=== PATIENT | male | born 1975 | race African-American/Black ===

== ENCOUNTER 2018-12-03 11:35 | Emergency (ER) | payer OTHER ==
[2018-12-03 11:47] VITALS: BP 119/76; PULSE 82; TEMP 98.2; BMI 33.5
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
== END 2018-12-03 12:56 | disposition home or self-care (01) ==
LOC: JERFT 11:35
DX: S16.1XXA Strain of muscle, fascia and tendon at neck level, initial encounter (principal); V43.62XA Car passenger injured in collision with other type car in traffic accident, initial encounter; Y92.414 Local residential or business street as the place of occurrence of the external cause; Y93.89 Activity, other specified; Y99.8 Other external cause status
CPT/HCPCS: 99281-25

== ENCOUNTER 2021-02-23 15:15 | Emergency (ER) | payer BC, OTHER ==
[2021-02-23 15:23] VITALS: BMI 29.5
[2021-02-23] MEDS ORDERED: SODIUM CHLORIDE 1,000 ML IV STA (16:15)
[2021-02-23] MEDS ORDERED: ACETAMINOPHEN 1000 MG/100 ML BAG IVPB ONE (16:15)
[2021-02-23] MEDS ORDERED: ONDANSETRON 4 MG/2 ML VIAL IVPUSH ONE (16:15)
[2021-02-23] MEDS ORDERED: morphine CARPU-JECT 4 MG/1 ML DISP.SYRIN IVPUSH ONE (16:16)
[2021-02-23] MEDS ORDERED: morphine SULFATE 4 MG/ML VIAL ONE (17:38)
[2021-02-23] MEDS ORDERED: ACETAMINOPHEN INJECTION 100 ML IVPB ONE (17:38)
[2021-02-23] MEDS ORDERED: ONDANSETRON 4 MG/2 ML VIAL ONE (17:39)
[2021-02-23 18:33] LABS: URINE APPEARANCE CLEAR; URINE BILIRUBIN NEGATIVE (NEGATIVE); URINE COLOR YELLOW; URINE GLUCOSE (UA) NEGATIVE (NEGATIVE); URINE KETONE NEGATIVE (NEGATIVE); URINE LEUK ESTERASE NEGATIVE (NEGATIVE); URINE NITRITE NEGATIVE (NEGATIVE); URINE PROTEIN NEGATIVE (NEGATIVE); URINE UROBILINOGEN 0.2 mg/dL (0.2-1.0)
[2021-02-23 18:46] LABS: CALCIUM 9.4 mg/dL (8.5-10.1)
[2021-02-23 18:47] LABS: ALBUMIN 4.2 g/dl (3.4-5.0); BLOOD UREA NITROGEN 16.9 mg/dL (7-18); INR 1.03 (0.83-1.09); PROTHROMBIN TIME (PATIENT) 11.8 SEC (9.7-13.0)
[2021-02-23 18:50] LABS: CREATININE 1.5 mg/dL (0.55-1.3)
[2021-02-23 18:51] LABS: BILIRUBIN,TOTAL 0.5 mg/dL (0.2-1)
[2021-02-23 18:58] LABS: BASO % 0.3 % (0-2.0); EOS % 0.1 % (0-4.5); HEMOGLOBIN 15.2 GM/dL (11.7-16.9); LYMPH % 10.2 % (8-40); MCH 31.3 pg (25.7-33.7); MCHC 33.9 g/dl (32.0-35.9); MEAN CELL VOLUME 92.5 fl (80-96); MEAN PLT VOLUME 8.5 fl (7.5-11.1); MONO % 2.8 % (3.8-10.2); NEUT % 86.6 % (42.8-82.8); PLATELET COUNT 185 10^3/uL (134-434); RBC 4.87 M/mm3 (4.00-5.60); RDW 13.1 % (11.9-15.9); WHITE BLOOD COUNT 10.1 K/mm3 (4.0-10.0)
[2021-02-23] MEDS ORDERED: TAMSULOSIN HCL 0.4 MG CAP PO ONE (21:04)
[2021-02-23] MEDS ORDERED: KETOROLAC TROMETHAMINE 30 MG/1 ML VIAL IVPUSH ONE (21:08)
[2021-02-23] MEDS ORDERED: KETOROLAC TROMETHAMINE 30 MG/1 ML VIAL ONE (21:30)
[2021-02-23] MEDS ORDERED: TAMSULOSIN HCL 0.4 MG CAP ONE (21:30)
[2021-02-23 22:15] VITALS: BP 117/73; PULSE 67; TEMP 98.4
== END 2021-02-23 22:43 | disposition home or self-care (01) ==
LOC: JER 15:15
PROC: 3E0333Z Introduction of Anti-inflammatory into Peripheral Vein, Percutaneous Approach (ICD-10-PCS; principal; 2021-02-23)
DX: R10.9 Unspecified abdominal pain (principal); N20.0 Calculus of kidney
CPT/HCPCS: 36415; 74176-TC; 80053; 81003; 85025; 85610; 87086; 99285-25

== ENCOUNTER 2021-05-06 05:26 | Day surgery (SDC) | payer OTHER ==
[2021-05-06 10:47] VITALS: BMI 28.8
[2021-05-06] MEDS ORDERED: KETOROLAC TROMETHAMINE 30 MG/1 ML VIAL ONE (12:44)
[2021-05-06] MEDS ORDERED: MIDAZOLAM HCL 2 MG/2 ML SINGLE DOSE VIAL ONE ×2 (12:44→13:01)
[2021-05-06 15:29] VITALS: BP 110/85; PULSE 66; TEMP 98.2
== END 2021-05-06 15:31 | disposition home or self-care (01) ==
LOC: JASU-SURG 05:26
PROVIDERS: ATTEND Urology
PROC: 0TF3XZZ Fragmentation in Right Kidney Pelvis, External Approach (ICD-10-PCS; principal; 2021-05-06 12:30)
DX: N20.0 Calculus of kidney (principal)

== ENCOUNTER 2021-08-10 04:34 | Day surgery (SDC) | payer OTHER ==
[2021-08-05 16:28] VITALS: BMI 28.8
[2021-08-10] MEDS ORDERED: MIDAZOLAM HCL 2 MG/2 ML SINGLE DOSE VIAL ONE ×2 (17:59→18:03)
[2021-08-10 18:42] VITALS: TEMP 98
[2021-08-10 19:21] VITALS: BP 131/88; PULSE 74
== END 2021-08-10 19:28 | disposition home or self-care (01) ==
LOC: JASU-SURG 04:34
PROVIDERS: ATTEND Urology
PROC: 0TF4XZZ Fragmentation in Left Kidney Pelvis, External Approach (ICD-10-PCS; principal; 2021-08-10 15:00)
DX: N20.0 Calculus of kidney (principal)